=== PATIENT | female | born 1960 | race Caucasian/White ===

== ENCOUNTER 2023-07-19 08:41 | Emergency (ER) | payer MEDICAID | END 2023-07-19 09:33 | disposition home or self-care (01) | LOC: ERS 08:41 | DX: S80.862A Insect bite (nonvenomous), left lower leg, initial encounter (principal); S80.822A Blister (nonthermal), left lower leg, initial encounter; L03.116 Cellulitis of left lower limb; W57.XXXA Bitten or stung by nonvenomous insect and other nonvenomous arthropods, initial encounter | CPT/HCPCS: 99283 ==